=== PATIENT | female | born 1980 | race Caucasian/White ===

== ENCOUNTER 2021-05-25 19:31 | Emergency (ER) | payer MEDICAID, OTHER, SELFPAY ==
[2021-05-25 19:52] VITALS: BP 149/99; PULSE 88; RESP 14; TEMP 36.9; O2SAT 99
--- NOTE | 2021-05-25 20:55 | PC.NURSE ---
No Answer in triage
--- NOTE | 2021-05-25 21:12 | PC.NURSE ---
No answer in triage
--- NOTE | 2021-05-25 21:25 | PC.NURSE ---
No answer in triage
== END 2021-05-25 21:26 | disposition left against medical advice (07) ==
PROVIDERS: Emergency Provider Emergency Medicine
CPT/HCPCS: 99281